=== PATIENT | male | born 1970 | race American Indian/Alaskan Native ===

== ENCOUNTER 2019-07-08 17:22 | Emergency (ER) | payer BC ==
--- NOTE | 2019-07-08 17:34 | Event Note ---
ED Screening Note Date of service: 07/08/19 Time: 17:30 ED Screening Note: This is a 48 y.o. M. that presents to the ER with burn to left foot last night. Patient states he accidentally spilled boiling water onto his left foot while pouring a hot water into mop bucket. This initial assessment/diagnostic orders/clinical plan/treatment(s) is/are subject to change based on patients health status, clinical progression and re- assessment by fellow clinical providers in the ED. Further treatment and workup at subsequent clinical providers discretion. Patient/guardian urged not to elope from the ED as their condition may be serious if not clinically assessed and managed. Initial orders include: Labs
[2019-07-08] MEDS ORDERED: TETANUS,DIPH,PERTUSS(ACELL) VACCINE 0.5 ML SYRINGE IM ONE (17:47)
[2019-07-08] MEDS ORDERED: BACITRACIN ZINC OINT 28.4 GM TP ONE (17:47)
--- NOTE | 2019-07-08 17:56 | Emergency Department Report ---
- General Chief complaint: Burn/Smoke Inhalation Stated complaint: BURN LT FOOT Time Seen by Provider: 07/08/19 17:30 Source: patient Mode of arrival: Ambulatory Limitations: No Limitations - History of Present Illness Initial comments: pt is a 48-year-old male who presents to the emergency room with complaints of a left foot burn that occurred around 9:15 PM last night. Patient states he was cleaning the floors at work and burned himself with boiling water. Patient denies any pain, fever, chills, numbness, weakness. He states initially there was some small blisters that had formed but they popped on their own. He is unsure of his last tetanus immunization. He states he does have a past medical history of hypertension but is not currently on medications, pt states he was diagnosed by his primary care doctor and was attempting to control it with diet and exercise. He denies any allergies to medications. - Related Data Previous Rx's Medication Instructions Recorded Last Taken Type Bacitracin Zinc Oint [Antibiotic 1 applic TP BID #1 oint...g. 07/08/19 Unknown Rx Oint] amLODIPine [Norvasc] 5 mg PO DAILY #30 tab 07/08/19 Unknown Rx Allergies Allergy/AdvReac Type Severity Reaction Status Date / Time pollen extracts Allergy Unknown Verified 07/08/19 17:26 shellfish derived Allergy Shortness Verified 07/08/19 17:26 of Breath dust Allergy Unknown Uncoded 07/08/19 17:26 Abscess Boil HPI - HPI Chief Complaint: Burn/Smoke Inhalation Stated Complaint: BURN LT FOOT Time Seen by Provider: 07/08/19 17:30 Home Medications: Previous Rx's Medication Instructions Recorded Last Taken Type Bacitracin Zinc Oint [Antibiotic 1 applic TP BID #1 oint...g. 07/08/19 Unknown Rx Oint] amLODIPine [Norvasc] 5 mg PO DAILY #30 tab 07/08/19 Unknown Rx Allergies/Adverse Reactions: Allergies Allergy/AdvReac Type Severity Reaction Status Date / Time pollen extracts Allergy Unknown Verified 07/08/19 17:26 shellfish derived Allergy Shortness Verified 07/08/19 17:26 of Breath dust Allergy Unknown Uncoded 07/08/19 17:26 ED Review of Systems ROS: Stated complaint: BURN LT FOOT Other details as noted in HPI Comment: All other systems reviewed and negative ED Past Medical Hx - Past Medical History Previous Medical History?: Yes Hx Hypertension: Yes - Surgical History Past Surgical History?: No - Social History Smoking Status: Current Every Day Smoker Substance Use Type: Alcohol - Medications Home Medications: Home Medications Medication Instructions Recorded Confirmed Last Taken Type Bacitracin Zinc Oint [Antibiotic 1 applic TP BID #1 oint...g. 07/08/19 Unknown Rx Oint] amLODIPine [Norvasc] 5 mg PO DAILY #30 tab 07/08/19 Unknown Rx ED Physical Exam - General Limitations: No Limitations General appearance: alert, in no apparent distress - Head Head exam: Present: atraumatic, normocephalic - Eye Eye exam: Present: normal appearance - ENT ENT exam: Present: mucous membranes moist - Neck Neck exam: Present: normal inspection - Neurological Exam Neurological exam: Present: alert, oriented X3 - Psychiatric Psychiatric exam: Present: normal affect, normal mood - Skin Skin exam: Present: warm, dry, other (2nd degree burn to the left dorsal foot and partially on the left ankle, only covers approximately half of the dorsal foot, no toe involvement, burn is not cirumferential only prsent on the dorsal surface, appears superficial, sensation intact, 2+ distal pulses) ED Course Vital Signs 07/08/19 07/08/19 07/08/19 17:26 18:57 19:44 Temperature 98.2 F Pulse Rate 71 68 67 Respiratory 17 Rate Blood Pressure 207/117 Blood Pressure 217/125 205/112 [Right] O2 Sat by Pulse 97 Oximetry 07/08/19 20:41 Temperature Pulse Rate 55 L Respiratory 16 Rate Blood Pressure Blood Pressure 170/113 [Right] O2 Sat by Pulse 99 Oximetry ED Medical Decision Making - Medical Decision Making pt is a 48-year-old male who presents to the emergency room with complaints of a left foot burn that occurred around 9:15 PM last night. Patient states he was cleaning the floors at work and burned himself with boiling water. Patient denies any pain, fever, chills, numbness, weakness. He states initially there was some small blisters that had formed but they popped on their own. He is unsure of his last tetanus immunization. He states he does have a past medical history of hypertension but is not currently on medications, pt states he was diagnosed by his primary care doctor and was attempting to control it with diet and exercise. He denies any allergies to medications. vitals with elevated blood pressure, discussed pts blood pressure with Dr. Corona, and recommended given clonidine while in the ED and to start pt on amlodipine as an outpatient. given clonidine 0.1 mg and BP improved. pt is asymptomatic. on exam: 2nd degree burn to the left dorsal foot and partially on the left ankle, only covers approx imately half of the dorsal foot, no toe involvement, burn is not circumferential only present on the dorsal surface, appears superficial, sensation intact, 2+ distal pulses. Patient's burn covered with bacitracin ointment and wound dressing applied. pt given prescription for bacitracin ointment and amlodipine 5 mg. advised pt to please use medication as prescribed. please follow-up with the [facility] in the next 2 days. Follow up with a primary care doctor regarding the elevation in your blood pressure. Will be starting you on a blood pressure medication today but your labs and blood pressure need to be monitored by a primary care provider. keep a blood pressure log and eat a low- sodium diet. Return to the emergency room for any new or worsening symptoms. Critical care attestation.: If time is entered above; I have spent that time in minutes in the direct care of this critically ill patient, excluding procedure time. ED Disposition Clinical Impression: Second degree burn of left foot Qualifiers: Encounter type: initial encounter Qualified Code(s): T25.222A - Burn of second degree of left foot, initial encounter HTN (hypertension) Qualifiers: Hypertension type: unspecified Qualified Code(s): I10 - Essential (primary) hypertension Disposition: TO HOME OR SELFCARE Is pt being admited?: No Does the pt Need Aspirin: No Condition: Stable Instructions: Partial Thickness Burn (ED), Hypertension (ED) Additional Instructions: Please use medication as prescribed. please follow-up with the [facility] in the next 2 days. Follow up with a primary care doctor regarding the elevation in your blood pressure. Will be starting you on a blood pressure medication today but your labs and blood pressure need to be monitored by a primary care provider. keep a blood pressure log and eat a low-sodium diet. Return to the emergency room for any new or worsening symptoms. [address] [address] [address] Floor Inpatient - 24 hours a day, 365 days a year Outpatient - Tuesday - Tuesday: 8:30 AM - 4 PM (Main) (Appointments) Prescriptions: Bacitracin Zinc Oint [Antibiotic Oint] 1 applic TP BID #1 oint...g. amLODIPine [Norvasc] 5 mg PO DAILY #30 tab Referrals: [facility], [Provider Group] - 2-3 Days [place] [Other] - 2-3 Days Time of Disposition: 20:41 Print Language: SLOVENIAN
[2019-07-08] MEDS ORDERED: cloNIDine 0.1 MG TAB PO ONE (18:57)
[2019-07-08 20:42] VITALS: BP 170/113
== END 2019-07-08 20:47 | disposition home or self-care (01) ==
LOC: ED 17:22
DX: T25.222A Burn of second degree of left foot, initial encounter (principal); I10 Essential (primary) hypertension; F17.200 Nicotine dependence, unspecified, uncomplicated; Z79.899 Other long term (current) drug therapy; Z91.048 Other nonmedicinal substance allergy status; Z91.013 Allergy to seafood; X12.XXXA Contact with other hot fluids, initial encounter; Y93.89 Activity, other specified; Y92.89 Other specified places as the place of occurrence of the external cause; Y99.8 Other external cause status
CPT/HCPCS: 90471; 90715